=== PATIENT | female | born 1975 | race Native Hawaiian/Other Pacific Islander ===

== ENCOUNTER 2016-09-28 16:10 | Observation (INO) | payer OTHER ==
[~2016-09-28] VITALS: Ht 157.5 cm; Wt 99.8 kg
[~2016-09-28 16:10] MED LIST: ASPI325T40 PO; BRILINTA90 MG OR; METO25TA2 PO; NITR0.4S2 SL; PAXIL10 MG PO; PRINIVIL5 MG OR
[2016-09-28 16:24] LABS: PLATELET COUNT 225 K/uL (152-353)
[2016-09-28 16:28] VITALS: BP 150/87; TEMP 99.1
[2016-09-28 16:36] LABS: POTASSIUM 3.6 mmol/L (3.6-5.2); SODIUM 135 mmol/L (136-145)
[2016-09-28 16:45] LABS: PARTIAL THROMBOPLASTIN TIME 26.1 SECONDS (24.5-33.6)
[2016-09-28 19:00] VITALS: BP 138/85
[2016-09-28 19:30] VITALS: BP 123/91
[2016-09-28 20:00] VITALS: BP 121/84
[2016-09-28 20:30] VITALS: BP 134/83
[2016-09-29] VITALS (8 sets, daily range): BP systolic 103–139; BP diastolic 56–94; TEMP 98–98.6; Ht 157.5 cm; Wt 99.8 kg
[2016-09-29 07:02] LABS: PLATELET COUNT 181 K/uL (152-353)
[2016-09-29 07:53] LABS: POTASSIUM 3.6 mmol/L (3.6-5.2); SODIUM 135 mmol/L (136-145)
[2016-09-29] MEDS ORDERED: CELEXA10 MG PO (09:17)
[2016-09-30 00:20] VITALS: BP 128/74; TEMP 98.5
[2016-09-30 04:00] VITALS: BP 113/75; TEMP 98.1
[2016-09-30 06:11] LABS: PLATELET COUNT 193 K/uL (152-353)
[2016-09-30 06:27] LABS: POTASSIUM 3.8 mmol/L (3.6-5.2)
[2016-09-30 07:36] VITALS: BP 140/80; TEMP 98.6
[2016-09-30 12:04] VITALS: BP 136/77; TEMP 98.3
== END 2016-09-30 12:45 | disposition home or self-care (01) ==
LOC: ED 16:10 → MED/SURG 20:52
PROVIDERS: Family Medicine; ADMIT Emergency Medicine
DX: K85.90 Acute pancreatitis without necrosis or infection, unspecified (principal); K29.60 Other gastritis without bleeding; I20.8 Other forms of angina pectoris; E86.0 Dehydration; E27.8 Other specified disorders of adrenal gland; R10.13 Epigastric pain
CPT/HCPCS: 36415; 80053; 80307; 80320; 81000; 81025; 82150; 82550; 82553; 83690; 83735; 84484; 85027; 85610; 85730; 86318; 93005; 96365; 96366; 96367; 96372; 96374; 96375; 96376; 99220; 99284; G0378; G0479; J0744; J1650; J2175; J2270; J2405; J3490; Q9963

== ENCOUNTER 2018-06-10 13:00 | Outpatient (CLI) | payer OTHER ==
[~2018-06-10 13:00] MED LIST changes: +CELEXA10 MG PO
== END 2018-06-10 19:44 | disposition home or self-care (01) ==
LOC: MAMMO 13:00
DX: Z12.31 Encounter for screening mammogram for malignant neoplasm of breast (principal)

== ENCOUNTER 2018-07-25 01:14 | Emergency (ER) | payer OTHER ==
[~2018-07-25] VITALS: Ht 152.4 cm; Wt 97.5 kg
[2018-07-25 01:26] VITALS: TEMP 98.4
[2018-07-25 01:30] LABS: PLATELET COUNT 228 K/uL (152-353)
[2018-07-25 02:22] LABS: POTASSIUM 3.8 mmol/L (3.6-5.2); SODIUM 139 mmol/L (136-145)
[2018-07-25 07:49] VITALS: BP 130/70
== END 2018-07-25 07:50 | disposition home or self-care (01) ==
LOC: ED 01:14
PROVIDERS: Family Medicine
DX: K85.90 Acute pancreatitis without necrosis or infection, unspecified (principal); R10.13 Epigastric pain; I49.8 Other specified cardiac arrhythmias
CPT/HCPCS: 36415; 80053; 80061; 81000; 82150; 82550; 82553; 83690; 83880; 84484; 85027; 85379; 93005; 96365; 96366; 96375; 96376; 99284; J0744; J1885; J2270; J2405; J3490; Q9963

== ENCOUNTER 2018-07-27 16:30 | Observation (INO) | payer OTHER ==
[~2018-07-27] VITALS: Ht 157.5 cm; Wt 102.1 kg
[2018-07-27 17:59] LABS: PLATELET COUNT 205 K/uL (152-353)
[2018-07-27 18:10] LABS: POTASSIUM 3.5 mmol/L (3.6-5.2)
[2018-07-27 18:29] VITALS: BP 133/77; TEMP 99.1; Ht 157.5 cm; Wt 102.1 kg
[2018-07-27] MEDS ORDERED: ISORDIL5 MG PO (19:05)
[2018-07-27] MEDS ORDERED: PANTOPRAZOLE 40MG TA PO (19:06)
[2018-07-27] MEDS ORDERED: ASA LOW DOSE81 MG PO (19:06)
[2018-07-27] MEDS ORDERED: VESICARE5 MG PO (19:07)
[2018-07-27] MEDS ORDERED: LIPITOR10 MG PO (19:07)
[2018-07-27 20:03] VITALS: BP 118/54; TEMP 98.6
[2018-07-27 21:52] VITALS: BP 137/68; TEMP 98.6
[2018-07-28] VITALS (12 sets, daily range): BP systolic 98–142; BP diastolic 56–82; TEMP 97.6–99
[2018-07-28 09:55] LABS: POTASSIUM 3.9 mmol/L (3.6-5.2)
[2018-07-28 10:17] LABS: PLATELET COUNT 192 K/uL (152-353)
--- NOTE | 2018-07-28 10:51 | NUR ---
1050 DR MENDES NOTIFIED WITH LAB RESULTS. NEW ORDERS REC'D TO OBTAIN AN ABD ULTRASOUND. KEEP NPO. PER DR MENDES SHE DID NOT WANT TO RESTART HOME MEDS AT THIS TIME.
--- NOTE | 2018-07-29 02:19 | NUR ---
07/29/18 0220 PT CALLED TO DESK SAID SHE NEEDED TO SPEAK WITH NURSE WENT DOWN THERE SHE SAID SHE WOKE UP FELT A LITTLE SHORT OF BREATH.BREATH SOUNDS CLEAR ON AUSCULTATION.V/S OBTAINED 134/72 59 97 PERCENT OXYGEN ON ROOM AIR.PT SAID SHE IS FEELING BETTER SAID SHE MAY HAVE A LITTLE SLEEP APNEA.TOLD HER TO CALL IF SHE NEEDS ME.PT VERBALIZED UNDERSTANDING CALL LIGHT WITHIN REACH.
[2018-07-29 04:00] VITALS: BP 135/76; TEMP 98.7
[2018-07-29 06:53] LABS: PLATELET COUNT 190 K/uL (152-353)
[2018-07-29 07:50] VITALS: BP 136/63; TEMP 99
--- NOTE | 2018-07-29 09:00 | NUR ---
[facility] RESULT CALLED TO DR. MENDES. RECEIVED NEW ORDER FOR LASIX 20MG PO.
[2018-07-29 12:06] VITALS: BP 121/78; TEMP 99.2
--- NOTE | 2018-07-29 18:41 | NUR ---
DR. MENDES HERE. RECEIVED ORDER TO D/C PT HOME.
--- NOTE | 2018-07-29 18:53 | NUR ---
D/C INSTRUCTIONS GIVEN. PT VERBALIZED UNDERSTANDING. PT AMB OUT IN STABLE COND.
== END 2018-07-29 18:50 | disposition home or self-care (01) ==
LOC: MED/SURG 16:30
PROVIDERS: ADMIT Family Medicine
DX: K85.80 Other acute pancreatitis without necrosis or infection (principal); R10.9 Unspecified abdominal pain; R11.0 Nausea
CPT/HCPCS: 74022; 80053; 81000; 82150; 82550; 83690; 83880; 84100; 84484; 85027; 87040; 93005; 96365; 96366; 96367; 96375; 99220; G0378; G0379; J2175; J2405; J2550

== ENCOUNTER → 2018-12-08 | Outpatient (CLI) | payer OTHER ==
[~2018-12-08] MED LIST changes: +ASA LOW DOSE81 MG PO; +ISORDIL5 MG PO; +LIPITOR10 MG PO; +PANTOPRAZOLE 40MG TA PO; +VESICARE5 MG PO
== END ==
LOC: LABW 21:16
DX: R07.89 Other chest pain (principal); Z87.898 Personal history of other specified conditions
CPT/HCPCS: 82550; 82553; 84484

== ENCOUNTER 2019-08-19 14:53 | Emergency (ER) | payer OTHER ==
[~2019-08-19] VITALS: Ht 157.5 cm; Wt 90.7 kg
[2019-08-19 15:30] VITALS: BP 125/82; TEMP 98.6
== END 2019-08-19 18:32 | disposition home or self-care (01) ==
LOC: ED 14:53
DX: H10.13 Acute atopic conjunctivitis, bilateral (principal); H16.133 Photokeratitis, bilateral; W89.8XXA Exposure to other man-made visible and ultraviolet light, initial encounter; Y92.238 Other place in hospital as the place of occurrence of the external cause
CPT/HCPCS: 99283

== ENCOUNTER 2019-10-05 18:46 | Outpatient (CLI) | payer OTHER ==
[2019-10-05 20:16] LABS: PLATELET COUNT 277 K/uL (152-353)
[2019-10-05 20:30] LABS: POTASSIUM 4.4 mmol/L (3.6-5.2)
== END 2019-10-05 20:51 | disposition home or self-care (01) ==
LOC: LABW 18:46
PROVIDERS: Family Medicine
DX: I10 Essential (primary) hypertension (principal); E55.9 Vitamin D deficiency, unspecified; R53.83 Other fatigue; E78.2 Mixed hyperlipidemia
CPT/HCPCS: 36415; 80053; 80061; 82306; 82607; 84443; 85027

== ENCOUNTER 2019-10-07 06:01 | Outpatient (CLI) | payer OTHER | END 2019-10-07 19:25 | disposition home or self-care (01) | LOC: LAB 06:01 | DX: R53.83 Other fatigue (principal) | CPT/HCPCS: 81000 ==